=== PATIENT | male | born 1990 | race Caucasian/White ===

== ENCOUNTER 2017-02-15 05:46 | Emergency (ER) | payer OTHER ==
[~2017-02-15] VITALS: Ht 190.5 cm; Wt 76.0 kg
[~2017-02-15 05:46] MED LIST: TESTOSTER TD; TORADOL10 MG PO
[2017-02-15 06:06] LABS: HEMATOCRIT 41.1 % (38.0-50.0); MCH 30.5 PG (29.0-34.0); MCHC 34.5 G/DL (30.0-36.0); MCV 88.2 FL (86-99); MEAN PLAT.VOLUME 8.7 uM^3 (9.0-12.4); PLATELET COUNT 197 K/uL (156-360); RBC DIS.WIDTH-SD 41.7 % (39-53); RED BLOOD COUNT 4.66 M/uL (4.00-5.50)
[2017-02-15 06:12] LABS: CHLORIDE 107 mEq/L (99-109); POTASSIUM 4.2 mEq/L (3.7-5.4); SODIUM 141 mEq/L (136-147)
[2017-02-15 06:14] LABS: GLUCOSE 116 mg/dL (70-99)
[2017-02-15 06:15] LABS: ANION GAP 8 MEQ/L (2-14)
[2017-02-15 06:18] LABS: GFR ESTIMATE (CALCULATED) > 59 mL/min/; UREA NITROGEN (BUN) 22 mg/dL (9-23)
[2017-02-15 06:41] LABS: ADD MIUA? YES; BILIRUBIN NEGATIVE; BLOOD LARGE; COLOR YELLOW ((YELLOW)); GLUCOSE (STRIP) NEGATIVE; KETONES NEGATIVE; LEUKOCYTES NEGATIVE; NITRITE NEGATIVE; PROTEIN (STRIP) 100; SPECIFIC GRAVITY 1.026 (1.000-1.030); UROBILINOGEN 0.2 MG/DL (0.2-1.0)
[2017-02-15 06:54] LABS: BACTERIA NONE SEEN /HPF; EPITHELIAL CELLS RARE /HPF; MUCUS 3+ /LPF; RED BLOOD CELLS 40-50 /HPF (0-5); UCUL ADDED? NO; WHITE BLOOD CELLS 0-5 /HPF (0-5)
[2017-02-15] MEDS ORDERED: ZOFRAN ODT4 MG PO (08:30)
[2017-02-15] MEDS ORDERED: PERCOCET 5/31 TABLET PO (08:30)
[2017-02-15] MEDS ORDERED: FLOMAX0.4 MG PO (08:30)
[2017-02-15 08:35] VITALS: BP 91/47
== END 2017-02-15 08:48 | disposition home or self-care (01) ==
LOC: EME 05:46
DX: N20.1 Calculus of ureter (principal)
CPT/HCPCS: 74176; 80048; 81003; 85027; 99281; 99284